=== PATIENT | female | born 1985 | race Asian ===

== ENCOUNTER 2019-12-14 13:04 | Inpatient (IN) | payer OTHER ==
[~2019-12-14] VITALS: Ht 177.8 cm; Wt 144.5 kg
[2019-12-14 13:44] LABS: BASOPHILS # (AUTO) 0.03 x10^3/uL (0-0.1); BASOPHILS % (AUTO) 0 % (0-1); EOSINOPHILS # (AUTO) 0.13 x10^3/uL (0-0.4); EOSINOPHILS % (AUTO) 2 % (1-7); LYMPHOCYTES # (AUTO) 1.18 x10^3/uL (1-3.4); LYMPHOCYTES % (AUTO) 14 % (22-44); MD NO; MEAN CORPUSCULAR HEMOGLOBIN 26.4 pg (27.0-34.8); MEAN CORPUSCULAR HGB CONC 32.9 g/dL (32.4-35.8); MEAN PLATELET VOLUME 9.4 fL (7.4-10.4); MONOCYTES # (AUTO) 0.57 x10^3/uL (0.2-0.8); MONOCYTES % (AUTO) 7 % (2-9); NEUTROPHILS # (AUTO) 6.75 x10^3/uL (1.8-6.8); NEUTROPHILS % (AUTO) 78 % (42-75); PLATELET COUNT 224 x10^3/uL (130-400); RED CELL DISTRIBUTION WIDTH 13.7 % (9.6-15.2)
[2019-12-14 13:55] LABS: ALANINE AMINOTRANSFERASE 11 U/L (12-78); ALBUMIN 2.1 g/dL (3.4-5.0); ANION GAP 10 mmol/L (5-15); CALCIUM 8.6 mg/dL (8.5-10.1); CHLORIDE 109 mmol/L (98-107); CREATININE 0.73 mg/dL (0.55-1.02)
[2019-12-14 13:58] LABS: ALKALINE PHOSPHATASE 95 U/L (45-117); BILIRUBIN,TOTAL 0.1 mg/dL (0.2-1.0); TOTAL PROTEIN 6.2 g/dL (6.4-8.2)
[2019-12-14] MEDS ORDERED: ACETAMINOPHEN 500 MG TABLET PO PRN (19:00)
[2019-12-14] MEDS ORDERED: niFEDipine ER 30 MG TABLET.ER PO SCH (21:00)
[2019-12-14] MEDS ORDERED: niFEDipine ER 30 MG TABLET.ER ONE (21:13)
[2019-12-14] MEDS ORDERED: INSULIN NPH HUMAN 100 UNIT/ML, 3ML VIAL SQ-INSULIN ONE (21:30)
[2019-12-15 06:27] LABS: BASOPHILS # (AUTO) 0.02 x10^3/uL (0-0.1); BASOPHILS % (AUTO) 0 % (0-1); EOSINOPHILS # (AUTO) 0.22 x10^3/uL (0-0.4); EOSINOPHILS % (AUTO) 3 % (1-7); LYMPHOCYTES # (AUTO) 1.94 x10^3/uL (1-3.4); LYMPHOCYTES % (AUTO) 23 % (22-44); MD NO; MEAN CORPUSCULAR HEMOGLOBIN 26.4 pg (27.0-34.8); MEAN CORPUSCULAR HGB CONC 32.8 g/dL (32.4-35.8); MEAN PLATELET VOLUME 9.5 fL (7.4-10.4); MONOCYTES # (AUTO) 0.61 x10^3/uL (0.2-0.8); MONOCYTES % (AUTO) 7 % (2-9); NEUTROPHILS # (AUTO) 5.79 x10^3/uL (1.8-6.8); NEUTROPHILS % (AUTO) 68 % (42-75); PLATELET COUNT 226 x10^3/uL (130-400); RED BLOOD COUNT 4.38 x10^6/uL (3.82-5.3); RED CELL DISTRIBUTION WIDTH 13.8 % (9.6-15.2)
[2019-12-15 06:37] LABS: ALANINE AMINOTRANSFERASE 12 U/L (12-78); ALBUMIN 2.1 g/dL (3.4-5.0); ANION GAP 10 mmol/L (5-15); CALCIUM 8.5 mg/dL (8.5-10.1); CHLORIDE 108 mmol/L (98-107)
[2019-12-15 06:39] LABS: ALKALINE PHOSPHATASE 91 U/L (45-117); BILIRUBIN,TOTAL 0.2 mg/dL (0.2-1.0); TOTAL PROTEIN 6.1 g/dL (6.4-8.2)
[2019-12-15 07:41] VITALS: BP 133/88
[2019-12-15] MEDS ORDERED: PRENATAL VIT/IRON/FA 1 EACH TABLET ONE (08:34)
[2019-12-15] MEDS ORDERED: ASPIRIN 81 MG TABLET CHEW ONE (08:34)
[2019-12-15] MEDS: PRENATAL VIT/IRON/FA 1 EACH TABLET PO SCH (08:40)
[2019-12-15] MEDS: ASPIRIN 81 MG TABLET CHEW PO SCH (08:41)
[2019-12-15] MEDS ORDERED: INSULIN LISPRO 100 UNITS/ML, PEN SQ-INSULIN ONE (17:00)
[2019-12-15] MEDS ORDERED: INSULIN NPH HUMAN 100 UNIT/ML, 3ML VIAL SQ-INSULIN ONE (21:00)
[2019-12-15] MEDS: niFEDipine ER 30 MG TABLET.ER PO SCH (21:00)
[2019-12-15] MEDS ORDERED: niFEDipine ER 60 MG TABLET.ER PO ONE (21:23)
[2019-12-16] MEDS ORDERED: INSULIN LISPRO 100 UNIT/ML, 3ML VIAL SQ-INSULIN ONE (08:00)
[2019-12-16] MEDS ORDERED: INSULIN NPH HUMAN 100 UNIT/ML, 3ML VIAL SQ-INSULIN ONE ×3 (08:00→21:00)
[2019-12-16] MEDS ORDERED: niFEDipine ER 30 MG TABLET.ER PO SCH (09:00)
[2019-12-16] MEDS ORDERED: PRENATAL VIT/IRON/FA 1 EACH TABLET ONE (09:21)
[2019-12-16] MEDS ORDERED: ASPIRIN 81 MG TABLET CHEW ONE (09:21)
[2019-12-16] MEDS: PRENATAL VIT/IRON/FA 1 EACH TABLET PO SCH (09:26)
[2019-12-16] MEDS: ASPIRIN 81 MG TABLET CHEW PO SCH (09:26)
[2019-12-16] MEDS ORDERED: INSULIN LISPRO 100 UNITS/ML, PEN SQ-INSULIN SCH (16:30)
[2019-12-16 19:59] VITALS: BP 141/98
[2019-12-16] MEDS ORDERED: niFEDipine ER 60 MG TABLET.ER PO ONE (21:03)
[2019-12-16] MEDS: niFEDipine ER 30 MG TABLET.ER PO SCH (21:05)
[2019-12-16] MEDS ORDERED: ACETAMINOPHEN 500 MG TABLET ONE (21:07)
[2019-12-17 01:08] VITALS: BP 143/87
[2019-12-17 06:13] VITALS: BP 136/83
[2019-12-17] MEDS ORDERED: INSULIN NPH HUMAN 100 UNIT/ML, 3ML VIAL SQ-INSULIN SCH ×2 (07:30→21:00)
[2019-12-17] MEDS ORDERED: INSULIN LISPRO 100 UNITS/ML, PEN SQ-INSULIN SCH (07:30)
[2019-12-17] MEDS ORDERED: PRENATAL VIT/IRON/FA 1 EACH TABLET ONE (08:44)
[2019-12-17] MEDS ORDERED: ASPIRIN 81 MG TABLET CHEW ONE (08:44)
[2019-12-17] MEDS: PRENATAL VIT/IRON/FA 1 EACH TABLET PO SCH (08:48)
[2019-12-17] MEDS: ASPIRIN 81 MG TABLET CHEW PO SCH (08:48)
[2019-12-17] MEDS ORDERED: niFEDipine ER 30 MG TABLET.ER PO SCH (09:00)
[2019-12-17 09:26] LABS: BASOPHILS # (AUTO) 0.05 x10^3/uL (0-0.1); BASOPHILS % (AUTO) 1 % (0-1); EOSINOPHILS # (AUTO) 0.16 x10^3/uL (0-0.4); EOSINOPHILS % (AUTO) 2 % (1-7); LYMPHOCYTES # (AUTO) 1.37 x10^3/uL (1-3.4); LYMPHOCYTES % (AUTO) 18 % (22-44); MD NO; MEAN CORPUSCULAR HGB CONC 32.2 g/dL (32.4-35.8); MONOCYTES # (AUTO) 0.59 x10^3/uL (0.2-0.8); MONOCYTES % (AUTO) 8 % (2-9); NEUTROPHILS # (AUTO) 5.36 x10^3/uL (1.8-6.8); NEUTROPHILS % (AUTO) 71 % (42-75); PLATELET COUNT 244 x10^3/uL (130-400); RED BLOOD COUNT 4.62 x10^6/uL (3.82-5.3); RED CELL DISTRIBUTION WIDTH 13.3 % (9.6-15.2)
[2019-12-17 09:50] LABS: ALANINE AMINOTRANSFERASE 22 U/L (12-78); ALBUMIN 2.3 g/dL (3.4-5.0); CALCIUM 8.8 mg/dL (8.5-10.1)
[2019-12-17 09:59] LABS: ALKALINE PHOSPHATASE 108 U/L (45-117); ANION GAP 7 mmol/L (5-15); BILIRUBIN,TOTAL 0.3 mg/dL (0.2-1.0); CHLORIDE 108 mmol/L (98-107); TOTAL PROTEIN 6.6 g/dL (6.4-8.2)
== END 2019-12-17 13:05 | disposition home or self-care (01) | DRG 832 ==
LOC: LDOP 13:04 → OBSVTOIN 17:43 → LDIP 17:43 → INTOOBSV 12-15 16:45 → OBSVTOIN 12-15 16:45
PROVIDERS: ADMIT Obstetrics & Gynecology; ATTEND Obstetrics & Gynecology
DX: O24.419 Gestational diabetes mellitus in pregnancy, unspecified control (principal); O10.913 Unspecified pre-existing hypertension complicating pregnancy, third trimester; Z68.42 Body mass index [BMI] 45.0-49.9, adult; E66.01 Morbid (severe) obesity due to excess calories; Z20.828 Contact with and (suspected) exposure to other viral communicable diseases; Z3A.29 29 weeks gestation of pregnancy; O99.213 Obesity complicating pregnancy, third trimester
CPT/HCPCS: 76819; 80053; 82962; 83036; 83615; 84550; 85025; 86592; 86762; 86850; 86900; 87340; 87635; 87806; J1815; G0378; G0475

== ENCOUNTER 2019-12-27 10:28 | Observation (INO) | payer OTHER ==
[~2019-12-27] VITALS: Ht 177.8 cm; Wt 147.3 kg
[2019-12-27 10:37] VITALS: BP 144/93
[2019-12-27 11:31] LABS: BASOPHILS % (AUTO) 1 % (0-1); EOSINOPHILS % (AUTO) 2 % (1-7); LYMPHOCYTES % (AUTO) 16 % (22-44); MEAN CORPUSCULAR HEMOGLOBIN 26.4 pg (27.0-34.8); MEAN CORPUSCULAR HGB CONC 33.3 g/dL (32.4-35.8); MEAN PLATELET VOLUME 9.2 fL (7.4-10.4); MONOCYTES % (AUTO) 6 % (2-9); NEUTROPHILS % (AUTO) 74 % (42-75); PLATELET COUNT 222 x10^3/uL (130-400); RED BLOOD COUNT 4.48 x10^6/uL (3.82-5.3); RED CELL DISTRIBUTION WIDTH 13.7 % (9.6-15.2)
[2019-12-27 11:33] LABS: MD NO
[2019-12-27 11:45] LABS: ALBUMIN 2.1 g/dL (3.4-5.0); ANION GAP 9 mmol/L (5-15); CALCIUM 8.9 mg/dL (8.5-10.1); CHLORIDE 107 mmol/L (98-107)
[2019-12-27 11:49] LABS: ALANINE AMINOTRANSFERASE 9 U/L (12-78); ALKALINE PHOSPHATASE 116 U/L (45-117); CREATININE 0.61 mg/dL (0.55-1.02); TOTAL PROTEIN 6.3 g/dL (6.4-8.2)
[2019-12-27 11:53] LABS: BILIRUBIN,TOTAL < 0.1 mg/dL (0.2-1.0)
== END 2019-12-27 15:26 | disposition home or self-care (01) ==
LOC: LDOP 10:28 → ORIP 12:01 → LDIP 13:52
PROVIDERS: ADMIT Obstetrics & Gynecology; ATTEND Obstetrics & Gynecology
DX: O11.3 Pre-existing hypertension with pre-eclampsia, third trimester (principal); O24.410 Gestational diabetes mellitus in pregnancy, diet controlled; Z87.891 Personal history of nicotine dependence; Z3A.31 31 weeks gestation of pregnancy
CPT/HCPCS: 36415; 59025; 80053; 85025; G0378